=== PATIENT | female | born 1965 | race Caucasian/White ===

== ENCOUNTER 2016-08-03 23:51 | Emergency (ER) | payer BC, OTHER ==
[~2016-08-03] VITALS: Ht 160 cm; Wt 154.2 kg
--- NOTE | ~2016-08-03 | EKG ---
[address] [address] ELECTROCARDIOGRAM REPORT Name: CLARITA JACKSON Room #: [facility]#: [id number] Admission: 08/03/16 Attend Phys: Discharge: 08/04/16 Date of : 61 Report #: [id number] THIS REPORT FOR: //name// [facility] ED Test Date: 2016-08-04 Test Time: 00:03:59 Pat Name: CLARITA JACKSON Department: Room: Gender: F [employer]: FRANSISCA : 1965 Requested By: Feliberto Padgett Order Number: [id number] MD: Pollo Domingo Measurements Intervals [place] Rate: 68 P: 76 MN: 170 QRS: 13 QRSD: 104 T: 17 QT: 439 QTc: 467 Interpretive Statements Sinus rhythm No significant abnormality Compared to ECG 07/01/2007 11:48:04 No significant change was found Electronically Signed On 08-05-2016 14:56:53 CDT by Pollo Domingo [email or web address] <ELECTRONICALLY SIGNED> By: Pollo Domingo MD, [facility] 08/05/16 1456 0003 0003 Pollo Domingo MD, FACC /EPI
[~2016-08-03 23:51] MED LIST: ZPAK PO
[2016-08-04] MEDS ORDERED: [UNRECOGNIZED DRUG - REMARK] (00:26)
[2016-08-04] MEDS ORDERED: EFFEXOR 5050 MG/1 T1 PO (00:26)
[2016-08-04 00:56] LABS: ABSOLUTE NEUTROPHILS 6.1 thou/uL (1.4-8.2); BASOPHILS 1.1 % (0.0-2.0); EOSINOPHILS 4.3 % (0.0-3.0); HEMATOCRIT 38.1 % (37.0-47.0); HEMOGLOBIN 12.1 gm/dL (12.0-15.0); LYMPHOCYTES 27.6 % (24.0-44.0); MCH 23.8 pg (26.0-34.0); MCHC 31.6 g/dL (28.0-37.0); MCV 75.3 fL (80.0-100.0); MONOCYTES 5.5 % (1.0-8.0); PLATELET COUNT 344 thou/uL (150-400); POLYS 61.5 % (36.0-66.0); RBC 5.06 mil/uL (4.20-5.00); RDW 15.1 % (10.5-14.5)
[2016-08-04 00:58] LABS: MANUAL DIFF NO
[2016-08-04 01:07] LABS: APTT 26.3 Seconds (24.5-32.8); PROTIME 10.2 Seconds (9.3-11.4)
[2016-08-04 01:12] LABS: ANION GAP 7 mmol/L (7-16); BUN 13 mg/dL (7-18); CHLORIDE 103 mmol/L (98-107); CO2 30 mmol/L (21-32); CREATININE 0.9 mg/dL (0.6-1.0); GLUCOSE 135 mg/dL (74-106); POTASSIUM 3.7 mmol/L (3.5-5.1); SODIUM 140 mmol/L (136-145)
[2016-08-04 01:23] LABS: ALBUMIN 3.3 g/dL (3.4-5.0); ALKALINE PHOSPHATASE 155 U/L (46-116); MAGNESIUM 1.9 mg/dL (1.8-2.4); NT-PRO BRAIN NAT PEPTIDE 62 pg/mL (<300); SGOT 16 U/L (15-37); SGPT 19 U/L (30-65); TOTAL BILIRUBIN 0.4 mg/dL (<0.1-1.0); TOTAL PROTEIN 7.3 g/dL (6.4-8.2); TROPONIN-I < 0.04 ng/mL (<0.04-0.07)
[2016-08-04 01:31] LABS: CK-MB MASS 0.7 ng/mL (<0.5-3.6)
[2016-08-04] MEDS ORDERED: ROBAXIN500 MG PO (01:34)
[2016-08-04] MEDS ORDERED: NAPROSYN500 MG PO (01:34)
[2016-08-04 02:13] VITALS: BP 147/87
== END 2016-08-04 01:57 | disposition home or self-care (01) ==
LOC: ER 23:51
PROVIDERS: Emergency Medicine
DX: R07.89 Other chest pain (principal); I10 Essential (primary) hypertension; Z91.14 Patient's other noncompliance with medication regimen; M43.6 Torticollis; Z98.890 Other specified postprocedural states; Z88.8 Allergy status to other drugs, medicaments and biological substances; Z88.1 Allergy status to other antibiotic agents; Z88.2 Allergy status to sulfonamides